=== PATIENT | male | born 1995 | race Caucasian/White ===

== ENCOUNTER 2021-02-16 20:08 | Emergency (ER) | payer BC, SELFPAY ==
[2021-02-16 20:27] VITALS: BP 121/89; PULSE 58; RESP 20; TEMP 36.6; O2SAT 97
--- NOTE | 2021-02-16 20:29 | ED.GENADULT ---
HPI - General Adult General Chief complaint: Unspecified Stated complaint: food lodged in throat Source: patient and RN notes reviewed Mode of arrival: ambulatory Limitations: no limitations History of Present Illness HPI narrative: patient states he was eating a rib eye steak when he thinks a piece of it may have gone down his windpipe but then coughed that up and then fell to go down his esophagus but then gets stuck. He has not been able to swallow his own saliva without it coming back up for the last hour period complaint: Food in esophagus Onset (ago): hour(s) (1) Location: neck Radiation: non-radiation Severity: severe Quality: aching, dull and constant Relieving factors: none Exacerbating factors: none Associated symptoms: denies other symptoms Treatments prior to arrival: none Related Data Home Medications Medication Instructions Recorded Confirmed No Home Medications 02/16/21 02/16/21 Allergies Allergy/AdvReac Type Severity Reaction Status Date / Time No Known Allergies Allergy Verified 02/16/21 20:25 Review of Systems Review of Systems: All systems reviewed & are unremarkable except as noted in HPI and below PMFSH Past Medical History Medical History (Updated 02/16/21 @ 20:55 by Dudley Ibarra MD) No active medical problems Surgical History Surgical History (Updated 02/16/21 @ 20:46 by Dudley Ibarra MD) No pertinent past surgical history Social History Social History (Updated 02/16/21 @ 20:47 by Dudley Ibarra MD) Smoking status: Never smoker Alcohol intake: never Substance use: never Exam Const: General: healthy appearing and no acute distress Nutritional Appearance: well nourished Orientation/consciousness: patient oriented x3 Other: constantly spitting up his saliva into a bucket HENMT: Head: normal to inspection Ears: external ears normal Face and sinus: normal facial exam Mouth: Yes moist mucous membranes Eyes: Conjunctivae: conjunctivae normal Pupils: Equal, round and reactive pupils present EOM: EOMs intact bilaterally Neck: Neck: normal visual inspection Resp: Effort & Inspection: normal respiratory effort Auscultation: clear to auscultation bilaterally Cardio: Rate: regular rate Rhythm: regular rhythm GI: GI Palp: Yes Soft to palpation, Yes Tenderness to palpation present (GI) ( mild tenderness in the epigastrum) and No Guarding due to palpation present (GI) Auscultation: normal bowel sounds Back/Spine/Pelvis: Cervical Spine: cervical ROM normal Thoracic/Lumbar Spine: thoraco-lumbar ROM normal Skin: General skin exam: normal color Neuro: General: patient oriented x3, moves all extremities and no focal motor deficits Speech: normal speech Gait exam (Neuro): Normal gait present Extrem: General: normal to inspection and no clubbing, cyanosis or edema Psych: Appearance: grossly normal and well kempt Mental Status: mental status grossly normal Affect: normal affect Attitude: cooperative Thought content: Yes Normal thought content present Course Course Emergency Course: I was able to use some E-Z Gas II and a small amount of water basically creating effervescence. Patient was able to hold that down for just a short amount of time and then threw that up but then the food bolus went down and he was able to swallow again. Consequently patient was able to swallow water without difficulty and then ate some Jell-O without difficulty. His aspirated food bolus was cleared. Vital Signs Vital signs: Vital Signs Temperature 36.6 C 02/16/21 20:27 Pulse Rate 58 L 02/16/21 20:27 Respiratory Rate 20 02/16/21 20:27 Blood Pressure 121/89 02/16/21 20:27 Pulse Oximetry 97 02/16/21 20:27 Temperature 36.6 C 02/16/21 21:00 Pulse Rate 64 02/16/21 21:00 Respiratory Rate 15 02/16/21 21:00 Blood Pressure 121/89 02/16/21 20:27 Pulse Oximetry 100 02/16/21 21:00 Medical Decision Making Vital Signs Vital Signs: Vital Si
[2021-02-16 21:00] VITALS: PULSE 64; RESP 15; TEMP 36.6; O2SAT 100
== END 2021-02-16 21:07 | disposition home or self-care (01) ==
PROVIDERS: Emergency Provider Emergency Medicine
DX: K22.2 Esophageal obstruction (principal)
CPT/HCPCS: 99281; 99282; A9270